=== PATIENT | male | born 1995 | race Caucasian/White ===

== ENCOUNTER 2017-01-10 21:32 | Emergency (ER) | payer OTHER ==
[~2017-01-10] VITALS: Ht 154.9 cm; Wt 74.0 kg
[2017-01-10 21:39] VITALS: TEMP 36.9; O2SAT 98; Ht 154.9 cm; Wt 74.0 kg
--- NOTE | 2017-01-10 21:40 | EMERGENCY ROOM VISIT NOTE ---
History First contact with patient: 21:30 Chief Complaint: ALCOHOL OVERDOSE Stated Complaint: ALCOHOL History of Present Illness The patient is a 21 year old male who presents to the Emergency Room with complaints of alcohol overdose. The patient was brought to the emergency department via ambulance. Reportedly, the patient was found unresponsive by a passerby. The patient is awake and alert. The patient admits to drinking alcohol. He denies any falls or injuries. He denies any pain. He states that he was drinking alcohol with his friends but he does not know where his friends are. His PBT was 0.242. Review of Systems A 10 system review of systems was completed with positives and pertinent negatives listed in the HPI. Past Medical/Surgical History patient denies Social History Alcohol Use: occasionally Housing Status: other (visiting the area) Occupation Status: other Current/Historical Medications No Active Prescriptions or Reported Meds Physical Exam Vital Signs Date Time Temp Pulse Resp B/P (MAP) Pulse Ox O2 Delivery O2 Flow Rate FiO2 01/11/17 07:10 91 12 110/72 97 01/11/17 06:55 77 12 97 01/11/17 06:40 77 13 97 01/11/17 06:35 80 12 96 01/11/17 06:05 77 15 95 Room Air 01/11/17 06:01 102/44 01/11/17 05:35 78 15 95 Room Air 01/11/17 05:30 96/54 01/11/17 05:22 98/53 01/11/17 05:08 75 01/11/17 05:05 76 15 01/11/17 05:00 79/40 01/11/17 04:35 81 16 01/11/17 04:30 86/46 01/11/17 04:05 81 11 01/11/17 04:00 77 11 96/53 01/11/17 03:30 77 77/40 95 01/11/17 03:00 84 16 94/55 95 01/11/17 02:32 85 18 99/46 95 Room Air 01/11/17 01:40 99 01/11/17 01:09 95 18 84/44 93 Room Air 01/10/17 23:56 89 18 88/56 92 Room Air 01/10/17 21:44 115 01/10/17 21:39 98 Room Air 01/10/17 21:39 96 Room Air 01/10/17 21:39 36.9 110 18 131/122 98 Room Air Physical Exam VITALS: Vitals are noted on the nurse's note and reviewed by myself. Vital signs stable. GENERAL: This is a 21-year-old male, in no acute distress, nondiaphoretic, well- developed well-nourished. SKIN: The skin was without rashes, erythema, edema, or bruising. There are no lacerations or abrasions. There is no tenting of the skin. Capillary reflex less than 2 seconds. HEAD: Normocephalic atraumatic. EARS: External auditory canals clear, tympanic membranes pearly irene without erythema or effusion bilaterally. No hemotympanums. No rowe sign. No mastoid tenderness. EYES: Pupils equal round and reactive to light and accommodation. Conjunctivae without injection, sclerae without icterus. Extraocular movements intact. Fundoscopic exam without hemorrhages or papilledema. NOSE: Patent, turbinates without inflammation or discharge. No septal hematoma or bleeding. FACE: No facial tenderness. Full range of motion of the jaw without tenderness. MOUTH: Mucous membranes moist. Pharynx without erythema or exudate. Uvula midline. Airway patent. Tongue does not deviate. NECK: Supple without nuchal rigidity. Cervical spine is nontender. Full range of motion of the neck without tenderness. No JVD. HEART: Regular rate and rhythm without murmurs gallops or rubs. LUNGS: Clear to auscultation bilaterally without wheezes, rales or rhonchi. No retractions or accessory muscle use. No chest tenderness. ABDOMEN: Positive bowel sounds x 4. Soft, nontender, without masses or organomegaly. MUSCULOSKELETAL: No muscle atrophy, erythema, or edema noted. Full range of motion in all extremities. Strength 5/5 throughout. NEURO: Patient was alert and oriented to person but not time or place. No focal neurological deficits. Medical Decision & Procedures Laboratory Results 01/10/17 21:52 Test 01/10/17 21:52 Anion Gap 7.0 mmol/L (3-11) Est Creatinine Clear Calc Drug Dose 103.0 ml/min Estimated GFR () 127.9 Estimated GFR (Non- 110.4 BUN/Creatinine Ratio 9.3 (10-20) Calcium Level 8.9 mg/dl (8.5-10.1) Ethyl Alcohol mg/dL 280.0 mg/dl (0-3) Medications Administered Medications (Trade) Dose Ordered Sig/[place] Route Start Time Stop Time Status Last Admin Dose Admin Lorazepam (Ativan Inj) 2 mg STK-MED ONCE .ROUTE 01/10/17 22:14 01/10/17 22:15 DC 01/10/17 22:20 2 MG Haloperidol Lactate (Haldol Inj) 10 mg STK-MED ONCE .ROUTE 01/10/17 22:15 01/10/17 22:16 DC 01/10/17 22:20 10 MG ED Course The patient has been verbally abusive to staff. He will not stay in his bed. The patient will be placed in leather restraints. The patient was placed in leather restraints but became even more verbal, making sexual comments to the staff. He continued to be quite disruptive, threatening to put his legs for the bed. Therefore, he was also given chemical sedation with 2 mg IM Ativan and 10 mg IM Haldol. Medical Decision Prior records/ancillary studies reviewed. Triage Nursing notes reviewed. Additional history obtained from nursing/EMS. The patient's history was concerning for altered mental status and a possible alcohol overdose. Differential diagnosis: Etiologies such as alcohol intoxication, toxicologic, infection, hypoglycemia, electrolyte abnormalities, cardiac sources, intracerebral event, neurologic, as well as others were entertained. Physical examination: As above. The patient is clinically intoxicated. There was no trauma noted. ER treatment provided: Monitoring Aspiration precautions The patient was frequently reassessed. The patient was uncooperative, verbally abusive to nursing staff and security. He was making sexual comments and gestures. He was pulling on the curtain in the room. The patient was considered a risk to himself and others. He was initially placed in leather restraints and then chemical restraints with 2 mg IM Ativan and 10 mg IM Haldol. The patient then rested for nearly 10 hours. Diagnostic interpretation by me: Cardiac monitoring did not reveal any evidence of dysrhythmia. The labs revealed no significant electrolyte abnormality. The patient's blood alcohol level was 280 mg/dL. The patient's history was reviewed once they were more coherent and their intoxication cleared. The patient states they have been in good health recently and had no medical complaints. The patient admitted to consuming alcohol. No additional concerning findings were noted. The patient complained of no symptoms to suggest assault. This appears to be consistent with an isolated overdose of alcohol. By the evaluation outlined above emergent etiologies such as trauma, infection, hypoglycemia, electrolyte abnormalities, cardiac sources, intracerebral event, neurologic,as well as others were deemed relatively unlikely. The patient was informed about the findings as listed above. The patient was counseled on the dangers of excessive alcohol use. I gave my usual and customary discussion regarding this issue. All questions were answered and the patient was pleased with the treatment. Return instructions were outlined and the patient was discharged in stable condition once their mental status improved and a safe destination was confirmed. Outpatient prescription management: None Referral: The patient was referred back to their primary care physician for follow-up in 2 to 3 days for a recheck of their current condition. Impression Primary Impression: Alcohol abuse Additional Impression: Alcohol use with intoxication Departure Information Dispostion Home / Self-Care Condition GOOD Prescriptions No Active Prescriptions or Reported Meds Referrals No Doctor, Assigned (PCP) Patient Instructions ED Alcohol Abuse, My [facility] Additional Instructions Rest Remain well hydrated Return with any worsening symptoms Problem Qualifiers
[2017-01-10] MEDS ORDERED: LORAZEPAM 2 MG/ML 1 ML VIAL IM STA (22:13)
[2017-01-10] MEDS ORDERED: HALOPERIDOL LACTATE 5 MG/ML 1 ML VIAL IM STA (22:13)
[2017-01-10] MEDS ORDERED: LORAZEPAM 2 MG/ML 1 ML VIAL ONE (22:14)
[2017-01-10] MEDS ORDERED: HALOPERIDOL LACTATE 5 MG/ML 1 ML VIAL ONE (22:15)
[2017-01-10 22:23] LABS: BUN/CREATININE RATIO 9.3 (10-20); CALCIUM 8.9 mg/dl (8.5-10.1); CREATININE 0.97 mg/dl (0.60-1.40); POTASSIUM 3.6 mmol/L (3.5-5.1)
[2017-01-11 07:10] VITALS: BP 110/72; PULSE 91; O2SAT 97
== END 2017-01-11 07:35 | disposition home or self-care (01) ==
LOC: EDBD 21:32 → C.EDB 21:34
DX: F10.129 Alcohol abuse with intoxication, unspecified (principal); Y90.8 Blood alcohol level of 240 mg/100 ml or more